=== PATIENT | male | born 1935 | race Caucasian/White ===

== ENCOUNTER 2020-11-06 15:07 | Outpatient (REF) | payer MEDICARE, SELFPAY ==
[2020-11-06 16:16] LABS: Alanine Aminotransferase 13 U/L (0-40); Albumin Level 3.8 g/dL (3.5-5.0); Alkaline Phosphatase 50 U/L (39-117); Anion Gap 11 (12-20); Aspartate Amino Transferase 12 U/L (5-37); Bilirubin Total 0.5 mg/dL (0.0-1.0); Blood Urea Nitrogen 35 mg/dL (9-16); Calcium 9.3 mg/dL (8.4-10.2); Carbon Dioxide 23 mmol/L (22-29); Chloride 107 mmol/L (96-108); Estimated Glomerular Filt Rate 48; Glucose Random 96 mg/dL (60-115); Potassium 4.3 mmol/L (3.3-5.1); Sodium 137 mmol/L (135-145); Total Protein 6.2 g/dL (6.5-8.0)
[2020-11-06 16:39] LABS: T4 Thyroxine 4.5 ug/dL (4.5-12.0); Thyroid Stimulating Hormone 0.88 uIU/mL (0.32-4.0)
[2020-11-06 16:50] LABS: Erythrocyte Sedimentation Rate 16 MM/HR (0-15)
[2020-11-09 19:32] LABS: Copper RBC 0.58 mg/L (0.53-0.91)
== END 2020-11-06 15:08 | disposition home or self-care (01) ==
LOC: HO.LAB 15:07
PROVIDERS: Visit Provider Psychiatry & Neurology Neurology
DX: G12.21 Amyotrophic lateral sclerosis (principal)
CPT/HCPCS: 36415; 80053; 82525; 82550; 84436; 84443; 85652